=== PATIENT | female | born 1975 | race Caucasian/White ===

== ENCOUNTER → 2016-10-21 | Outpatient (CLI) | payer MEDICARE, OTHER ==
[2016-01-14 10:50] VITALS: BP 133/78
[~2016-10-21] MED LIST: CYCL10TA2 PO; HYDR-971 PO
--- NOTE | 2016-10-21 15:41 | KCIC ---
Bilateral digital screening mammograms: Reason for examination: Routine screening. Comparison is made to previous studies dated 06/12/2015 and 11/18/2009. The skin and nipples show no abnormalities. No abnormal lymph nodes are seen. The breast parenchyma is predominantly fatty. (Breast density: Category A.) There are no dominant masses, suspicious calcifications or architectural distortions. A few benign calcifications are again seen. Impression: No evidence of malignancy. Recommend routine screening. BI-RADS Category 2: Benign. "Our facility is accredited by the [employer] Mammography [employer]." This patient's information has been entered into a reminder system for the patient to be notified with the results of her examination and a target date for the next mammogram. Electronically signed by: Tawnya Houston MD (10/21/2016 3:37 PM) [id number]
== END | disposition home or self-care (01) ==
LOC: KCIC MAMMO 10:07
PROVIDERS: ATTEND Internal Medicine
DX: Z12.31 Encounter for screening mammogram for malignant neoplasm of breast (principal)
CPT/HCPCS: G0202; 77067

== ENCOUNTER → 2020-06-05 | Outpatient (CLI) | payer MEDICARE ==
[2016-01-14 10:50] VITALS: BP 133/78
[~2020-06-05] MED LIST changes: +HYDR-3164 PO; -HYDR-971 PO
--- NOTE | 2020-06-05 12:08 | KCIC ---
INDICATION: Screening for osteopenia/osteoporosis. History of progesterone -control. COMPARISON: None. TECHNIQUE: Bone densitometry was performed through the lumbar spine and proximal femur. IMPRESSION: Lumbar Spine: BMD: 0.986 Z-Score: 0.0 Range: Within expected range for age. Proximal Femur: BMD: 0.916 g/cm^2 Z-Score: 0.1 Range: Within expected range for age. Electronically signed by: Ok Bills MD (06/05/2020 12:05 PM) [facility]
--- NOTE | 2020-06-05 17:33 | KCIC ---
BILATERAL SCREENING MAMMOGRAM, 3-D History: Routine screening. Comparison: Bilateral mammogram October 21, 2016. Technique: MLO and CC digital tomosynthesis (3D) images obtained. Radiologist reviewed these images on dedicated workstation. Findings: Breast Tissue Density A : The breasts are almost entirely fatty. There are numerous bilateral benign calcifications, increased from prior study. Mild bilateral glandu lar nodularity is redemonstrated. There are no dominant masses, suspicious microcalcifications or architectural distortion. IMPRESSION: No mammographic evidence of malignancy. Recommend routine screening. BI-RADS category 2: Benign findings. The images were reviewed with computer-aided detection. Patient information is entered into reminder system with a target due date for the next screening emil mogram. Mammography is the most sensitive method for finding small breast cancers, but it does not detect the m all and is not a substitute for careful clinical examination. A negative mammogram does not negate a clinically suspicious finding and should not result in delay in biopsying a clinically suspicious a bnormality. "Our facility is accredited by the [employer] Mammography Program." Electronically signed by: Saleem Lou MD (06/05/2020 5:30 PM) [facility]
== END ==
LOC: KCIC MAMMO 08:02
PROVIDERS: ATTEND Internal Medicine
DX: Z12.31 Encounter for screening mammogram for malignant neoplasm of breast (principal); M81.0 Age-related osteoporosis without current pathological fracture
CPT/HCPCS: 77067; 77080